=== PATIENT | female | born 1960 | race African-American/Black ===

== ENCOUNTER 2016-10-26 20:22 | Emergency (ER) | payer BC ==
[~2016-10-26] VITALS: Ht 162.6 cm; Wt 65.8 kg
--- NOTE | 2016-10-26 20:30 | NUR ---
To bed 6 a 55 yo female bibself w c/o lower abdominal pressure pain x1 day and lower back pain. no s/s of acute distress. vss. afebrile. no n/v. comfort measures rendered. Awaiting for er md butcher.
--- NOTE | 2016-10-26 20:38 | NUR ---
Dr Stewart at bedside at [facility].
--- NOTE | 2016-10-26 20:55 | NUR ---
started a saline lock on the lac g20, blood drawn and sent to lab.
[2016-10-26] MEDS ORDERED: IV NS 0.9% 1,000 ML BAG IV ONE (21:00)
[2016-10-26] MEDS ORDERED: KETOROLAC TROMETHAMINE INJ 30 MG/ML VIAL ONE (21:00)
[2016-10-26] MEDS ORDERED: KETOROLAC TROMETHAMINE INJ 30 MG/ML VIAL IV ONE (21:00)
[2016-10-26 21:01] LABS: BASOPHILS % (AUTO) 0.5 % (0.0-2.0); EOSINOPHILS # (AUTO) 0.1 /CMM (0.0-0.7); EOSINOPHILS % (AUTO) 2.2 % (0.0-6.0); HEMATOCRIT 39 % (33-45); HEMOGLOBIN 12.8 g/dL (11.5-14.8); LYMPHOCYTES # (AUTO) 2.5 /CMM (0.8-4.8); LYMPHOCYTES % (AUTO) 43.1 % (20.0-44.0); MEAN CORPUSCULAR HEMOGLOBIN 27 PG (26.0-33.0); MEAN CORPUSCULAR HGB CONC 33 g/dl (31.0-36.0); MEAN CORPUSCULAR VOLUME 83 fL (82-100); MONOCYTES # (AUTO) 0.4 /CMM (0.1-1.30); MONOCYTES % (AUTO) 6.2 % (2.0-12.0); NEUTROPHILS # (AUTO) 2.8 /CMM (1.8-8.9); PLATELET COUNT (AUTO) 252 /CMM (150-450); RDW COEFFICIENT OF VARIATION 12.8 (11.5-15.0); RED BLOOD CELL COUNT(AUTO) 4.71 MIL/uL (4.0-5.2); WHITE BLOOD COUNT (AUTO) 5.8 K/uL (4.3-11.0)
--- NOTE | 2016-10-26 21:02 | NUR ---
Medicated patient as ordered by Dr Stewart.
[2016-10-26 21:03] LABS: APPEARANCE,URINE Clear (CLEAR); BILIRUBIN,URINE SMALL (NEGATIVE); BLOOD, URINE Small Ery/uL (NEGATIVE); COLOR,URINE Yellow (YELLOW); KETONES,URINE 15 (NEGATIVE); LEUKOCYTE ESTERASE ,URINE Small (NEGATIVE); NITRITE, URINE Negative (NEGATIVE); PROTEIN,URINE Trace mg/dl (NEGATIVE); UGLUCOSE Negative (NEGATIVE)
--- NOTE | 2016-10-26 21:03 | NUR ---
Patient taken to ct.
[2016-10-26 21:09] LABS: CREATININE 0.9 mg/dL (0.6-1.3); POTASSIUM 4.3 mmol/L (3.5-5.1)
--- NOTE | 2016-10-26 21:10 | NUR ---
Patient back from ct.
[2016-10-26 21:15] LABS: ALBUMIN 3.9 g/dL (3.4-5.0); BILIRUBIN,DIRECT 0.1 mg/dL (0.0-0.2); BILIRUBIN,TOTAL 0.2 mg/dL (0.2-1.0); TOTAL PROTEIN, SERUM 7.5 g/dL (6.4-8.2)
[2016-10-26 21:25] LABS: BACTERIA,URINE Moderate /HPF (None Seen)
[2016-10-26 21:26] LABS: SQUAMOUS EPITHELIAL CELL,UR Few /HPF (None Seen)
--- NOTE | 2016-10-26 22:01 | NUR ---
IV removed. Catheter intact and site benign. Pressure and 4x4 applied to site. No bleeding noted.Patient discharged to home in stable condition. Written and verbal after care instructions given. Patient verbalizes understanding of instruction. Patient is ambulatory with a steady gait. No further complaints.
[2016-10-26 22:02] VITALS: BP 128/74
== END 2016-10-26 22:03 | disposition home or self-care (01) ==
LOC: ER 20:24
DX: N12 Tubulo-interstitial nephritis, not specified as acute or chronic (principal)
CPT/HCPCS: 36415; 72128-TC; 80048-TC; 80076-TC; 81000-TC; 83690-TC; 85025-TC; 87086-TC; A4606; J1885; J7030; Z7610

== ENCOUNTER 2017-03-30 23:45 | Emergency (ER) | payer BC ==
[~2017-03-30] VITALS: Ht 162.6 cm; Wt 65.8 kg
--- NOTE | 2017-03-31 00:14 | NUR ---
PT BIB FAMILY C/O "VERY TENDER WHEN I PEE X 3 DAYS" PT AOX3 RR EVEN AND UNLABORED. NO SOB NOTED. NAD NOTED. NO NVD AT THIS TIME. PT GOWNED AND PLACED ON MONITOR WAITING FOR MD RON.
--- NOTE | 2017-03-31 00:16 | NUR ---
URINE COLLECTED. SENT TO LAB
[2017-03-31 00:29] LABS: APPEARANCE,URINE CLEAR (CLEAR); BILIRUBIN,URINE NEGATIVE (NEGATIVE); BLOOD, URINE 2+ Ery/uL (NEGATIVE); COLOR,URINE YELLOW (YELLOW); KETONES,URINE NEGATIVE (NEGATIVE); LEUKOCYTE ESTERASE ,URINE NEGATIVE (NEGATIVE); NITRITE, URINE NEGATIVE (NEGATIVE); PROTEIN,URINE NEGATIVE (NEGATIVE); UGLUCOSE NEGATIVE (NEGATIVE); UROBILINOGEN,URINE 0.2 EU/dL (0.2)
[2017-03-31 00:49] LABS: BACTERIA,URINE None seen /HPF (None Seen); MUCUS,URINE Few /LPF (None Seen); SQUAMOUS EPITHELIAL CELL,UR Few /HPF (None Seen); WBC,URINE 0-2 /HPF (0-3)
[2017-03-31] MEDS ORDERED: NITROFURANTOIN/NITROFURAN MAC 100 MG CAPSULE ONE (00:54)
--- NOTE | 2017-03-31 00:59 | NUR ---
DR. DEL ROSARIO AT BEDSIDE SPEAKING TO PT REGARDING RESULTS.
[2017-03-31] MEDS ORDERED: NITROFURANTOIN/NITROFURAN MAC 100 MG CAPSULE PO ONE (01:00)
--- NOTE | 2017-03-31 01:01 | NUR ---
Patient discharged to home in stable condition. Written and verbal after care instructions given. Patient verbalizes understanding of instruction. ambulatory with a steady gait
[2017-03-31 01:02] VITALS: BP 108/58
== END 2017-03-31 01:02 | disposition home or self-care (01) ==
LOC: ER 23:46
DX: N30.80 Other cystitis without hematuria (principal)
CPT/HCPCS: 81000-TC; 82962-TC; A4606; Z7610

== ENCOUNTER 2019-01-09 07:31 | Emergency (ER) | payer MEDICAID ==
[~2019-01-09] VITALS: Ht 162.6 cm; Wt 69.4 kg
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
[2019-01-09 08:28] LABS: BASOPHILS # (AUTO) 0.1 /CMM (0.0-0.2); BASOPHILS % (AUTO) 1.5 % (0.0-2.0); EOSINOPHILS % (AUTO) 1.6 % (0.0-6.0); HEMATOCRIT 38 % (33-45); HEMOGLOBIN 12.4 g/dL (11.5-14.8); LYMPHOCYTES % (AUTO) 21.3 % (20.0-44.0); MEAN CORPUSCULAR HGB CONC 33 g/dl (31.0-36.0); MEAN CORPUSCULAR VOLUME 86 fL (82-100); MONOCYTES # (AUTO) 0.2 /CMM (0.1-1.30); MONOCYTES % (AUTO) 3.9 % (2.0-12.0); NEUTROPHILS # (AUTO) 3.3 /CMM (1.8-8.9); NEUTROPHILS % (AUTO) 71.7 % (43.0-81.0); PLATELET COUNT (AUTO) 261 /CMM (150-450); RED BLOOD CELL COUNT(AUTO) 4.39 MIL/uL (4.0-5.2); WHITE BLOOD COUNT (AUTO) 4.6 K/uL (4.3-11.0)
[2019-01-09 08:34] LABS: CREATININE 0.9 mg/dL (0.6-1.3); POTASSIUM 4.1 mmol/L (3.5-5.1)
[2019-01-09 08:37] LABS: MAGNESIUM 2.1 mg/dL (1.8-2.4); PHOSPHORUS 4.1 mg/dL (2.5-4.9)
[2019-01-09 09:18] LABS: ABG BASE EXCESS -0.8 mmol/L; ABG OXYGEN SATURATION 37.9 % (92.0-98.5); ABG PH 7.323 (7.350-7.450); COHb 0.9 % (0.5-1.5); MetHb 0.8 % (0.0-1.5); O2Hb 37.3 % (94.0-97.0); VENT MODE, BG ROOM AIR
[2019-01-09 10:20] VITALS: BP 112/66
--- NOTE | 2019-01-09 10:20 | NUR ---
Patient discharged to home in stable condition. Written and verbal after care instructions given. Patient verbalizes understanding of instruction.
== END 2019-01-09 10:20 | disposition home or self-care (01) ==
LOC: ER 07:31
DX: R25.2 Cramp and spasm (principal); R51 Headache
CPT/HCPCS: 36415; 36600; 80048-TC; 82803-TC; 83735-TC; 84100-TC; 85025-TC

== ENCOUNTER 2019-04-15 15:06 | Emergency (ER) | payer MEDICAID ==
[~2019-04-15] VITALS: Ht 162.6 cm; Wt 67.1 kg
[2019-04-15 15:40] VITALS: BP 119/67
[2019-04-15] MEDS ORDERED: IBUPROFEN 400 MG TABLET PO ONE (16:00)
[2019-04-15] MEDS ORDERED: IBUPROFEN 400 MG TABLET ONE (16:11)
== END 2019-04-15 16:45 | disposition home or self-care (01) ==
LOC: ER 15:09
DX: S66.811A Strain of other specified muscles, fascia and tendons at wrist and hand level, right hand, initial encounter (principal); J06.9 Acute upper respiratory infection, unspecified; H61.23 Impacted cerumen, bilateral; X58.XXXA Exposure to other specified factors, initial encounter; Y93.89 Activity, other specified; Y92.89 Other specified places as the place of occurrence of the external cause; Y99.8 Other external cause status
CPT/HCPCS: 71045-TC

== ENCOUNTER 2019-10-05 21:47 | Emergency (ER) | payer MEDICAID ==
[~2019-10-05] VITALS: Ht 162.6 cm; Wt 65.8 kg
[2019-10-05 21:49] VITALS: BP 122/78
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
== END 2019-10-05 23:30 | disposition home or self-care (01) ==
LOC: ER 21:47
DX: M79.671 Pain in right foot (principal)
CPT/HCPCS: 73630-TC

== ENCOUNTER 2022-08-19 15:31 | Emergency (ER) | payer BC, MEDICAID ==
[~2022-08-19] VITALS: Ht 162.6 cm; Wt 68.0 kg
[2022-08-19 15:58] VITALS: BP 137/80
--- NOTE | 2022-08-19 16:37 | NUR ---
TO ER 13,NO APPARENT CHANGE IN CONDITION
[2022-08-19] MEDS ORDERED: TDAP [DIPH/PERTUSSIS/TET] 0.5 ML VIAL IM ONE ×3 (17:30→21:00)
[2022-08-19] MEDS ORDERED: BACITRACIN ZINC OINT PACKET 1 EA PACKET TP ONE ×2 (17:30→17:31)
== END 2022-08-19 18:45 | disposition home or self-care (01) ==
LOC: ER 15:33
DX: S61.210A Laceration without foreign body of right index finger without damage to nail, initial encounter (principal); X58.XXXA Exposure to other specified factors, initial encounter; Y93.89 Activity, other specified; Y92.009 Unspecified place in unspecified non-institutional (private) residence as the place of occurrence of the external cause; Y99.8 Other external cause status
CPT/HCPCS: 90715

== ENCOUNTER 2023-12-04 11:59 | Emergency (ER) | payer BC ==
[~2023-12-04] VITALS: Ht 162.6 cm; Wt 63.5 kg
[2023-12-04 12:11] VITALS: BP 143/81; TEMP 98.5
[2023-12-04] MEDS ORDERED: VALA100026 PO (12:21)
[2023-12-04 12:36] VITALS: O2SAT 98
== END 2023-12-04 12:36 | disposition home or self-care (01) ==
LOC: ER 12:01
DX: L98.8 Other specified disorders of the skin and subcutaneous tissue (principal); B02.9 Zoster without complications; E11.9 Type 2 diabetes mellitus without complications